=== PATIENT | female | born 1995 | race Caucasian/White ===

== ENCOUNTER 2018-04-03 21:33 | Inpatient (IN) ==
[2018-04-03 19:09] LABS: Amphetamine Screen,Urine Negative ng/mL (Cutoff=1000); Barbiturate Screen,Urine Negative ng/mL (Cutoff=200); Benzodiazepines Screen,Urine Negative ng/mL (Cutoff=200); Cannabinoid Screen,Urine Negative ng/mL (Cutoff = 50); Cocaine Screen,Urine Negative ng/mL (Cutoff= 300); Opiate Screen,Urine Negative ng/mL (Cutoff=300); Phencyclidine Screen,Urine Negative ng/mL (Cutoff=25)
[~2018-04-03 21:33] MED LIST: CeFAZolin Premix DUPLEX 2,000 MG/50 ML BAG IVPB ONE; Famotidine 20 MG/2 ML VIAL IVP ONE; Metoclopramide 10 MG/2 ML VIAL IVP ONE; Oxytocin 20 units/ LR 1000 mL 20 UNIT/1,000 ML BAG IVC ONE; Ringers Solution, Lactated 1,000 ML IVC ONE
--- NOTE | 2018-04-03 21:36 | OB/GYN History & Physical ---
Date of Encounter: 04/03/18 Time of Encounter: 21:33 Assessment and Plan (1) 39 weeks gestation of Current visit: Yes Status: Acute (2) Breech presentation Current visit: Yes Status: Acute Patient was breech presentation since approximate 18 weeks gestation. She now has relative oligohydramnios and the possibility of external version is low. section had been planned now given the low fluid and continued breech presentation proceed with sections evening. She is aware operative risks and appropriate consent has been obtained. Qualifiers: Fetus number: single or unspecified fetus Qualified Code(s): O32.1XX0 - Maternal care for breech presentation, not applicable or unspecified (3) Oligohydramnios Current visit: Yes Status: Acute Patient presents for possible rupture membranes and evaluation was negative. Monitoring did show variable decelerations therefore ultrasound was ordered of oligohydramnios. Qualifiers: Trimester: third trimester Qualified Code(s): O41.03X0 - Oligohydramnios, third trimester, not applicable or unspecified History of Present Illness Chief complaint: Contractions, possible leakage of fluid, persistent breech infant, SAMI of 6 HPI: Ms. Díaz is a 23 year old female 1 para 0 female at 39 weeks 3 days gestation with known breech infant since 18 weeks. Patient reports possible small amount of leakage of fluid earlier today followed by cramps. Initial evaluation showed sterile speculum exam negative for fern and nitrazine however monitoring she did have reactive nonstress test with occasional variable decelerations. Ultrasound was performed and did show confirmation of breech with an SAMI of 6.3. been complicated only by small HC and BPD. Level II ultrasound was normal. On arrival she reported good movement no bleeding or leakage fluid Past Med Surg Social Fam HX - Past Medical History Source: patient, old records reviewed Medical history: no medical history Psychiatric history: no psych history - Past Surgical History Surgical History: no surgical history - Social History Smoking Status: Never smoker Smokeless Tobacco Status: No Alcohol use: none Drug use: none - Family History Father Hx Family Cardiac Disorders: Yes (hypertension) Obstetrical History - Pregnancies : 1 Medications and Allergies Vitamins 1 tab PO DAILY 04/03/18 [History] 3 Allergy/AdvReac Type Severity Reaction Status Date / Time No Known Allergies Allergy Verified 04/03/18 17:59 Exam - Constitutional Constitutional: well developed, well nourished - HEENT HEENT: EOMI, PERRL - Neck Neck exam: full ROM - Lungs Respiratory exam: CTAB - Cardiovascular Cardiovascular exam: RRR - Abdomen Abdomen: Present: gravid - Extremities Deep Tendon Reflex Grade: 2+ Normal - Comments Comments: Sterile speculum exam is negative for fern, pooling, nitrazine Results All other labs normal. - VTE Reasons for not Prescribing Prophylaxis: Treatment not Indicated - Low risk for VTE
[2018-04-03] MEDS ORDERED: Ringers Solution, Lactated 1,000 ML IVC SCH ×2 (21:45→23:00)
[2018-04-03] MEDS ORDERED: Oxytocin 20 units/ LR 1000 mL 20 UNIT/1,000 ML BAG IVC SCH (21:45)
[2018-04-03 22:05] LABS: Basophils % 0.2 %; Eosinophils # 0.1 K/mcL (0.0-0.6); Hematocrit 34.2 % (35.3-44.9); Hemoglobin 11.7 g/dL (11.5-15.4); Immature Granulocytes % 0.7 % (0-4); Lymphocytes # 2.2 K/mcL (0.6-4.6); Lymphocytes % 16.4 %; Mean Corpuscular HGB Conc 34.2 g/dL (31.6-35.5); Mean Corpuscular Hemoglobin 29.5 pg (28.0-33.3); Mean Corpuscular Volume 86.4 fL (83.0-100.0); Mean Platelet Volume 9.1 fL (9.4-12.4); Monocytes # 0.8 K/mcL (0.0-1.3); Monocytes % 5.7 %; Neutrophils # 10.1 K/mcL (1.6-8.9); Platelet Count 232 K/mcL (140-400); Red Blood Count 3.96 M/mcL (3.82-4.97); Red Cell Distribution Width 12.6 % (11.5-14.5)
--- NOTE | 2018-04-03 22:54 | Anesthesia Evaluation PreOp ---
Date of Encounter: 04/03/18 Time of Encounter: 22:52 - Past History Planned Operation: Csection/spinal Cardiac History: Denies any Significant Hx Pulmonary History: Denies Any Significant HX DEPOSITION OPERATOR History: Denies Any Significant HX Other Medical History: Denies Any Significant HX Anesthesia History: No Prior Anesthetic Complications, Past Anesthesia (No past anesthetic history, no family anesthetic complications.) : Yes Alcohol Use: none Drug use: none Medications and Allergies Vitamins 1 tab PO DAILY 04/03/18 [History] 3 Allergy/AdvReac Type Severity Reaction Status Date / Time No Known Allergies Allergy Verified 04/03/18 17:59 - Meds/Allergy Pre-op Review Medications Reviewed: Yes Allergies Reviewed: Yes Beta Blockers on Current Med List: No Anesthesia Results - Labs 04/03/18 21:52 Anesthesia Exam BP 127/78 P 85 R 16 T 98.2 Height: 5'0" Weight: 85.3kg NPO (# of Hours): 8 Pain Scale: 0 Pain Scale Used: Numeric (1 - 10) - HEENT Pupil (Motor): Pupils equal Mallampati: II Teeth: Normal Oral Opening: Greater than 3 - DEPOSITION OPERATOR LOC: Oriented DEPOSITION OPERATOR Motor: Normal RUE, Normal LUE, Normal RLE, Normal LLE, Normal Face DEPOSITION OPERATOR Sensory: Normal: RUE, LUE, RLE, LLE, Face - Cardiac Rhythm: Regular Murmur: None JVD: No Carotid Bruit: No - Pulmonary Breath Sounds: bilateral Clear Respiratory Effort: Symmetrical Anesthesia Assess/Plan ASA Score: 2 Modified Tin Scale for Level of Consciousness: Cooperative, oriented, and tranquil Anesthetic Plan: Regional Autologous Blood: No Monitoring Plan: Standard Monitors Recovery Plan: PACU
[2018-04-03] MEDS ORDERED: *HR* Promethazine 25 MG/ML VIAL IVP PRN (22:58)
[2018-04-03] MEDS ORDERED: Ondansetron 4 MG/2 ML VIAL IVP ONE (22:58)
[2018-04-03] MEDS ORDERED: *HR* HYDROmorphone (PF) 1 MG/ML SYRINGE IVP PRN (22:58)
[2018-04-03] MEDS ORDERED: *HR* Meperidine 25 MG/ML SYRINGE IVP PRN (22:58)
[2018-04-03] MEDS ORDERED: Bupivacaine/PF 0.75% in Dex 2 ML AMPUL INFILT ONE (23:21)
[2018-04-03] MEDS ORDERED: Lidocaine -MPF 1% 5 ML AMPUL ONE (23:21)
[2018-04-03] MEDS ORDERED: Morphine Sulfate/PF 5mg/10mL Vial ONE (23:28)
[2018-04-03] MEDS ORDERED: Ondansetron 4 MG/2 ML VIAL ONE (23:45)
[2018-04-03] MEDS ORDERED: Dexamethasone 4 MG/ML VIAL ONE (23:45)
[2018-04-03] MEDS ORDERED: *HR* Oxytocin 10 UNIT/ML VIAL IM ONE (23:46)
--- NOTE | 2018-04-04 00:22 | Anesthesia Procedures ---
Date of Encounter: 04/04/18 Time of Encounter: 23:37 Procedures: Anesthesia - Epidural/Spinal Patient ID/Chart reviewed: Yes Patient examined: Yes OB Eval: Gestational age: 39 OB Eval: : 1 OB Eval: Hx Para: 0 OB Eval: Contractions: Non-stressed pattern Consent Obtained: Yes Supplemental Oxygen: None/Room Air Site Prep: Aseptic Technique, Sterile prep and drape, Povidone-Iodine 1% Patient position: upright Local Anesthetic: Lidocaine 1% Amount of Local Anesthetic used: 3 Interspace Used: L3-L4 Loss of Resistance (WARNER): No Blood: No CSF: Yes Paresthesia: No Spinal Needle Gauge: 25 Spinal Dose: Bupivicaine 0.75% 1.4ml morphine 250mcg Procedure: Spinal administered in upright position. Intrathecal dose administered 1st pass without any immediate noted complications. VSS throughout. Supine for section procedure. Vitals + FHT's: See anesthesia OR record
[2018-04-04] MEDS ORDERED: Ondansetron 4 MG/2 ML VIAL IVP PRN ×2 (00:34→03:34)
[2018-04-04] MEDS ORDERED: *HR* OxyCODONE/APAP 5/325 TABLET PO PRN ×2 (00:34→03:34)
[2018-04-04] MEDS ORDERED: Sennosides 8.6 MG TABLET PO PRN ×2 (00:34→03:34)
[2018-04-04] MEDS ORDERED: Metoclopramide 10 MG/2 ML VIAL IVP PRN ×2 (00:34→03:34)
[2018-04-04] MEDS ORDERED: Rho Immune Globulin 1,500 UNIT SYRINGE IM ONE (00:34)
[2018-04-04] MEDS ORDERED: Simethicone 80 MG TAB.CHEW PO PRN ×2 (00:34→03:34)
[2018-04-04] MEDS ORDERED: Ibuprofen 600 MG TABLET PO PRN (00:34)
--- NOTE | 2018-04-04 00:42 | OB/GYN Procedure Note ---
Section - Date of procedure: 04/04/18 Preop diagnosis: breech, other (Labor, borderline oligohydramnios with an SAMI of 6.4) Post-op diagnosis: same Procedure: section, primary low transverse Surgeon: Pete Gonzalez Quantitated Blood Loss: 300 Was there an nursing home assistant administrator present: Yes Associate Media Director: Janee Bassett Anesthesiologist: Rafy Tavares Anesthesia Type: Spinal section complications: none Disposition: L&D Recovery Room - (s) A Infant Delivery Date: 04/04/18 Infant Delivery Time: 23:57 Presentation: breech Gender: Female Viability: Viable Pounds: 6 Ounces: 14 at 1 minute: 8 at 5 minutes: 9 Placenta: partial extraction Cord: 3 umbilical vessels - Narrative Narrative: Patient's a 23-year-old 1 now para 1 female presented at 39 and 3 cm weeks gestation with complaint of contractions possible rupture membranes. During observation she did have possible variable decelerations therefore ultrasound was performed showing in noted fluid index of 6.3 and the baby remained breech. I discussed with patient options she desired primary section she signed appropriate consent. She is aware operative risks. Description procedure: Patient was taken operating room where spinal anesthesia was administered. She is prepped draped in usual sterile fashion bladder was drained of clear urine with Dash catheter. We determined adequate anesthesia and scalp was used to make Pfannenstiel skin incision. This was sharply taken down to the rectus fascia. Fascia was incised midline fascial incision was extended bilaterally. Plan is developed and rectus muscle and fascia distally rectus muscles were divided and peritoneum was entered bluntly. Bladder blade was placed and bladder flap was developed and lower uterine segment. Scalpel was used to make low-transverse uterine incision membranes ruptured clear fluid. Uterine incision was extended bluntly bilaterally. Infant was delivered from breech presentation keeping head flexed. Cord was clamped cut and was handed nurse personnel who were in attendance. Placenta was delivered manually without difficulty. Uterine cavity was massaged free of all residual tissue. Uterus closed the Vicryl running lock stitch. Second imbricating layer was placed for the first obtain hemostasis. There was still some oozing therefore several [id number] stitches were placed. This point eventually hemostasis was ensured through irrigation was performed. Fascia was reapproximated with 0 Vicryl running manner. If closed the fascia again irrigation was performed hemostasis was ensured. Skin edges reapproximated with 4-0 Vicryl. All sponge and instruments counts are correct patient was taken recovery in good condition.
[2018-04-04] MEDS ORDERED: Ringers Solution, Lactated 1,000 ML IVC SCH (00:45)
[2018-04-04] MEDS ORDERED: Oxytocin 20 units/ LR 1000 mL 20 UNIT/1,000 ML BAG IVC SCH ×2 (00:45→03:34)
--- NOTE | 2018-04-04 02:47 | Anesthesia Evaluation Post Op ---
Date of Encounter: 04/04/18 Time of Encounter: 02:20 - Vital Signs Vital Signs: Vital Signs Temperature 98.1 F 04/03/18 22:18 Pulse Rate 88 04/03/18 22:18 Respiratory Rate 16 04/03/18 22:18 Blood Pressure 127/78 04/03/18 22:18 Temperature 98.1 F 04/03/18 22:18 Pulse Rate 88 04/03/18 22:18 Respiratory Rate 16 04/03/18 22:18 Blood Pressure 127/78 04/03/18 22:18 - Lungs Lungs: Clear Ascult./Percussion - Airway Airway: Non-obstructed - Cardiovascular Regular Rate - Mental Status Mental Status: Alert & Oriented, Answers Appropriately - Pain Pain Scale: 0 Pain Scale used: Numeric (1 - 10) - Nausea Vomiting Nausea Vomiting: Not Present - Hydration Hydration: NPO, Dash catheter - Discharge PostOp Status: Transfer Patient to floor
[2018-04-04] MEDS: Prenatal Vit/FA 1 EACH TABLET PO SCH (08:49)
[2018-04-04] MEDS ORDERED: Prenatal Vit/FA 1 EACH TABLET PO SCH (09:00)
--- NOTE | 2018-04-04 09:35 | OB/GYN Progress Note ---
Date of Encounter: 04/04/18 Time of Encounter: 09:29 - Assessment and Plan (1) delivery delivered Current Visit: Yes Status: Acute S/P section, POD #1 Continue routine PP care consult prn Consider discharge tomorrow Subjective - Subjective Interval history: Doing well. Dash catheter remains in place, states has not been out of bed yet. Has not passed gas, no BM since delivery. Tolerating regular diet well. Dressing dry and intact, abdominal binder on. Lochia light and without clots. Pain well controlled with po meds. Infant in crib at bedside, states well. Patient reports: appetite normal, pain well controlled [place]: doing well, nursing well Objective - Vital Signs Latest vital signs: Vital Signs Temp Pulse Resp BP Pulse Ox 04/04/18 06:35 97.7 F 83 16 112/70 98 04/04/18 05:15 97.9 F 82 16 109/68 97 04/04/18 04:15 97.5 F L 83 16 101/59 97 04/04/18 03:45 98.4 F 78 16 104/64 96 04/04/18 03:15 98.2 F 78 16 109/72 96 04/03/18 22:18 98.1 F 88 16 127/78 Intake and Output 04/03/18 04/04/18 04/04/18 23:59 07:59 15:59 Intake Total 240 / 240 Output Total 275 / 275 Balance -35 / -35 Intake: Oral 240 / 240 Output: Urine 275 / 275 Other: Weight 85.3 kg 83.8 kg Patient Weight 04/04/18 23:59 Weight 83.8 kg - Exam Lungs: bilateral: normal Chest: Normal S1, Normal S2 Extremities: Present: normal Abdomen: Present: normal appearance, other (Normoactive bowel sounds) Incision: Present: dry, dressed Uterus: Present: normal, firm. Absent: bogginess Fundal Height: 1 (1 below umbilicus) Comments: Fundus firm, scant lochia - Labs Labs: Laboratory Results - last 24 hr 04/03/18 04/03/18 17:51 21:52 WBC 13.3 H RBC 3.96 Hgb 11.7 Hct 34.2 L MCV 86.4 MCH 29.5 MCHC 34.2 RDW 12.6 Plt Count 232 MPV 9.1 L Immature Gran % 0.7 Seg Neutrophils % 76.0 Lymphocytes % 16.4 Monocytes % 5.7 Eosinophils % 1.0 Basophils % 0.2 Neutrophils # 10.1 H Lymphocytes # 2.2 Monocytes # 0.8 Eosinophils # 0.1 Basophils # 0.0 Urine Opiates Screen Negative Ur Barbiturates Screen Negative Ur Phencyclidine Scrn Negative Ur Amphetamines Screen Negative U Benzodiazepines Scrn Negative Urine Cocaine Screen Negative U Marijuana (THC) Screen Negative
[2018-04-04] MEDS: Ibuprofen 600 MG TABLET PO PRN (16:59)
[2018-04-05 07:59] VITALS: BP 113/74
[2018-04-05] MEDS: Ibuprofen 600 MG TABLET PO PRN (08:20)
[2018-04-05] MEDS: Prenatal Vit/FA 1 EACH TABLET PO SCH (08:20)
--- NOTE | 2018-04-05 08:28 | Discharge Summary ---
Date of Encounter: 04/05/18 Time of Encounter: 08:25 - Discharge Diagnosis (1) Mother currently breast-feeding Priority: Secondary Status: Acute (2) delivery delivered Priority: Primary Status: Acute Comments: Pt meeting all post-op milestones. She desires discharge home today. - Discharge Medications Prescriptions: OxyCODONE/APAP 5/325 [Percocet 5/325 MG] 1 each PO Q4HR PRN 5 Days #30 tablet PRN Reason: Moderate pain 4-6 Ibuprofen [Motrin] 600 mg PO Q6HR PRN #60 tablet PRN Reason: Cramping Docusate [Colace] 100 mg PO BID #60 capsule Home Medications: Vitamins 1 tab PO DAILY 04/03/18 [History] Docusate [Colace] 100 mg PO BID #60 capsule 04/05/18 [Rx] Ibuprofen [Motrin] 600 mg PO Q6HR PRN #60 tablet 04/05/18 [Rx] OxyCODONE/APAP 5/325 [Percocet 5/325 MG] 1 each PO Q4HR PRN 5 Days #30 tablet [Rx] Simethicone [Gas-X] 80 mg PO TID PRN tab.chew 04/05/18 [Rx] Allergies/Adverse Reactions: 3 Allergy/AdvReac Type Severity Reaction Status Date / Time No Known Allergies Allergy Verified 04/03/18 17:59 Data Procedures and tests throughout hospitalization: Laboratory Tests 04/03/18 04/03/18 17:51 21:52 WBC 13.3 H RBC 3.96 Hgb 11.7 Hct 34.2 L MCV 86.4 MCH 29.5 MCHC 34.2 RDW 12.6 Plt Count 232 MPV 9.1 L Immature Gran % 0.7 Seg Neutrophils % 76.0 Lymphocytes % 16.4 Monocytes % 5.7 Eosinophils % 1.0 Basophils % 0.2 Neutrophils # 10.1 H Lymphocytes # 2.2 Monocytes # 0.8 Eosinophils # 0.1 Basophils # 0.0 Urine Opiates Screen Negative Ur Barbiturates Screen Negative Ur Phencyclidine Scrn Negative Ur Amphetamines Screen Negative U Benzodiazepines Scrn Negative Urine Cocaine Screen Negative U Marijuana (THC) Screen Negative - Impressions ITS Impressions Obstetrics Ultrasound 04/03/18 19:27 IMPRESSION: 1. Single live intrauterine with gestational age of 37 weeks and 1 day by current sonographic biometry. The estimated due date is 04/23/2018. 2. Oligohydramnios D/ / Josh Guillen MD / Josh Guillen MD Interpreting Provider: Josh Guillen MD Date of admission: 04/03/18 21:33 Primary care physician: PCP NONE Discharging clinician: Lillie Viera Anticipated date of discharge: 04/05/18 - Patient Status Disposition: Home, Self-Care Condition: Good Functional capacity at discharge: independent ambulation Overall status at discharge: patient is progressing back to baseline - Discharge Instructions Follow Up With: NONE,PCP [Primary Care Provider] - Pete Gonzalez MD [Partnered Physician] - - Diet and Activity Activity: increase activity as tolerated Diet: regular diet Hospital Course Reason for admission: active labor Delivery: section Episiotomy: none Laceration: none Other procedures: none complications: none Discharge diagnosis: IUP at term delivered Sylva baby: female Hospital course: - Date of procedure: 04/04/18 Preop diagnosis: breech, other (Labor, borderline oligohydramnios with an SAMI of 6.4) Post-op diagnosis: same Procedure: section, primary low transverse Surgeon: Pete Gonzalez Quantitated Blood Loss: 300 Was there an assistant community manager present: Yes Net Application Support Specialist: Janee Bassett Anesthesiologist: Rafy Tvaares Anesthesia Type: Spinal section complications: none Disposition: L&D Recovery Room - (s) Infant A Delivery Date: 04/04/18 Delivery Time: 23:57 Presentation: breech Gender: Female Viability: Viable Pounds: 6 Ounces: 14 at 1 minute: 8 at 5 minutes: 9 Placenta: partial extraction Cord: 3 umbilical vessels Time Attestation: Total time spent providing and/or coordinating discharge services: Time Spent: Less than 30 minutes - VTE Reasons for not Prescribing Prophylaxis: Treatment not Indicated - Low risk for VTE Documentation of Mechanical Device: Intermittent pneumatic compression device Exam - Constitutional Vitals: Temp Pulse Resp BP Pulse Ox 98.2 F 86 14 113/74 97 04/05/18 07:59 06/27/18 07:59 04/05/18 07:59 04/05/18 07:59 04/05/18 07:59 General appearance IM: A&O X 3 - Respiratory Respiratory exam: Present: CTAB - Cardiovascular Cardiovascular exam IM: Present: RRR - GI/Abdominal GI/Abdominal exam IM: soft, no peritoneal signs Incision: dry (steri strips intact, no s/sx infection), intact - Uterine Tone: Firm Uterus Position: 1 Finger Below Umbilicus - Extremities Exam Extremities exam IM: Present: pedal edema (1+ bilaterally, no erythema or warmth ) - Neurological Exam Neurological exam: normal gait, oriented X3 - Psychiatric Additional comments: reports good mood
[2018-04-05] MEDS ORDERED: Measles/Mumps/Rubella Vacc 0.5 ML VIAL SQ ONE (10:27)
== END 2018-04-05 13:10 | disposition home or self-care (01) | DRG 765 ==
LOC: 1NENULAB → 1NENUOBS 04-04 03:38
PROVIDERS: ADMIT Advanced Practice Midwife; ATTEND Advanced Practice Midwife